=== PATIENT | male | born 1955 | race American Indian/Alaskan Native ===

== ENCOUNTER 2018-02-03 19:02 | Emergency (ER) | payer OTHER, SELFPAY ==
--- NOTE | 2018-02-03 19:08 | ED_ITS ---
HPI - Epistaxis <Janett Pimentel PA-C - Last Filed: 02/03/18 21:15> General Chief complaint: Nasal Problem Stated complaint: 'nose bleeding since last night' Time Seen by Provider: 02/03/18 19:05 Source: patient Mode of arrival: ambulatory Limitations: no limitations History of Present Illness HPI Narrative: This 62-year-old male complains of nosebleed that started last night on the left side. He states he was picking at his nose prior to this starting. He states that this stopped after he pinched his nostrils and used an ice pack. He was picking at his nose again earlier and states he had nosebleed on both sides, again worse on the left, prior to coming in here. He states it [place] but has now nearly resolved. He denies any other trauma. He denies any recent URI symptoms or fever. He has been feeling otherwise well. Related Data Home Medications Medication Instructions Recorded Confirmed FLUTICASONE 50MCG ASHANTI INH- 1 spray INTRANASAL BID #0 03/05/10 (FLUTICASONE PROPIONATE) levothyroxine [Synthroid] 0.075 mg PO QDAY #0 06/25/16 Previous Rx's Medication Instructions Recorded amoxicillin-pot clavulanate 875 mg PO BID #14 tab 06/25/16 [Augmentin] Allergies Allergy/AdvReac Type Severity Reaction Status Date / Time No Known Drug Allergies Allergy Verified 02/03/18 19:31 Review of Systems <Janett Pimentel PA-C - Last Filed: 02/03/18 21:15> Review of Systems All systems reviewed & are unremarkable except as noted in HPI and below PFSH <Janett Pimentel PA-C - Last Filed: 02/03/18 21:15> Comment: Nonsmoker. Denies street drugs Exam <TAMIKA Edwards Last Filed: 02/03/18 21:15> Narrative Exam Narrative: GENERAL APPEARANCE: Patient sitting comfortably, in no distress. HEENT: EOMI, normal oropharynx, nasal mucosa edematous, left side I can visualize a faint dried blood streak but no active bleeding or clear source LUNGS: Clear to auscultation bilaterally. HEART: Rate and rhythm regular without murmur, normal S1 and S2, no S3 or S4. Initial Vital Signs Initial Vital Signs: Vital Signs Temperature 97.2 F L 02/03/18 19:09 Pulse Rate 70 02/03/18 19:09 Respiratory Rate 20 02/03/18 19:09 Blood Pressure 169/97 H 02/03/18 19:09 Pulse Oximetry 96 02/03/18 19:09 <Tai Cuellar DO - Last Filed: 02/03/18 21:41> Initial Vital Signs Initial Vital Signs: Vital Signs Temperature 97.2 F L 02/03/18 19:09 Pulse Rate 70 02/03/18 19:09 Respiratory Rate 20 02/03/18 19:09 Blood Pressure 169/97 H 02/03/18 19:09 Pulse Oximetry 96 02/03/18 19:09 Course <Janett Pimentel PA-C - Last Filed: 02/03/18 21:15> Hospital Course: Epistaxis appeared largely resolved when I 1st saw patient. We did apply Afrin on a cotton ball and this completely resolved. His nasal mucosa was irritated, especially on the left, but I was not able to visualize any source of active bleeding prior to discharge. He was given nasal clip and instructions on repeating the Afrin if needed. He agreed to return if acutely worse. Advised to avoid manipulating the nose and also discontinue his Flonase. Orders Ordered: Discontinued Medications Oxymetazoline HCl (Afrin) 2 sprays NASAL NOW ONE Stop: 02/03/18 19:26 Last Admin: 02/03/18 19:34 Dose: 2 sprays Vital Signs - 8 hr 02/03/18 19:09 02/03/18 20:18 Temperature 97.2 F L Pulse Rate 70 61 Respiratory Rate 20 18 Blood Pressure 169/97 H 132/85 H Pulse Oximetry 96 95 <Tai Cuellar DO - Last Filed: 02/03/18 21:41> Orders Ordered: Discontinued Medications Oxymetazoline HCl (Afrin) 2 sprays NASAL NOW ONE Stop: 02/03/18 19:26 Last Admin: 02/03/18 19:34 Dose: 2 sprays Vital Signs - 8 hr 02/03/18 19:09 02/03/18 20:18 Temperature 97.2 F L Pulse Rate 70 61 Respiratory Rate 20 18 Blood Pressure 169/97 H 132/85 H Pulse Oximetry 96 95 Discharge Plan Departure Patient Disposition: Home, Self-Care Clinical Impression: Epistaxis Discharge Date/Time: 02/03/18 20:18 Interventions: ED Discharge Assessment Last Done: 02/03/18 20:18 Instructions: DI for Nosebleed Activity Restrictions/Additional Instructions: Return as we talked about if you have any acutely worse nose bleed or bleeding will not stop. You can use the nasal spray on a cotton ball and put inside her nose for a few minutes as we did here, as well as using the nose clip. Stop using your Flonase as this may be an irritant. Avoid blowing your nose, picking , or manipulating at all. Follow up with your PCP next week if you continue to have nosebleeds Prescriptions: No Action FLUTICASONE 50MCG ASHANTI INH- (FLUTICASONE PROPIONATE) 1 spray Intranasal BID Qty: 0 RF: 0 levothyroxine [Synthroid] 75 MCG tablet 0.075 mg PO QDAY Qty: 0 RF: 0 amoxicillin-pot clavulanate [Augmentin] 875 MG/125 MG tablet 875 mg PO BID Qty: 14 RF: 0 Referrals: Judit Casillas MD [Primary Care Provider] - <Tai Cuellar DO - Last Filed: 02/03/18 21:41> Cosign ED Attending Shayeature Attestation: I was available for consultation during this patient's emergency department encounter
[2018-02-03 19:09] VITALS: BP 169/97; PULSE 70; RESP 20; TEMP 36.2; O2SAT 96; BMI 33.4
[2018-02-03] MEDS: OXYMETAZOLINE NASAL SPRAY 15 ML 2 SPRAYS NASAL (19:34)
[2018-02-03 20:18] VITALS: BP 132/85; PULSE 61; RESP 18; O2SAT 95
== END 2018-02-03 20:18 | disposition home or self-care (01) ==
PROVIDERS: Emergency Provider Internal Medicine; PCP Family Medicine
DX: R04.0 Epistaxis (principal)
CPT/HCPCS: 30905; 99282

== ENCOUNTER → 2022-05-26 15:47 | Outpatient (CLI) | payer MEDICARE, OTHER, SELFPAY ==
[2022-05-26 17:16] LABS: Alanine Aminotransferase 51 IU/L (<50); Albumin 4.4 g/dL (3.5-5.0); Albumin Globulin Ratio 1.1 (1.0-2.8); Alkaline Phosphatase 81 U/L (38-126); Aspartate Aminotransferase 39 IU/L (17-59); BUN Creatinine Ratio 12.4 (6-22); Bilirubin Total 0.8 mg/dL (0.2-1.3); Blood Urea Nitrogen 11 mg/dL (9-20); Calcium 9.2 mg/dL (8.4-10.2); Carbon Dioxide 29 mmol/L (22-32); Chloride 101 mmol/L (98-107); Cholesterol 124 mg/dL (140-199); Estimated Glomerular Filt Rate > 60 mL/min (>60); Glucose 120 mg/dL (80-110); HDL Cholesterol 36 mg/dL (40-60); HEMOLYSIS < 15 (0-50); LDL Cholesterol Calculated 57 mg/dL (<100); Potassium 4.1 mmol/L (3.4-5.1); Sodium 140 mmol/L (137-145); Total Protein 8.4 g/dL (6.3-8.2); Triglycerides 154 mg/dL (35-150)
[2022-05-26 17:17] LABS: Hemoglobin A1C% w Est Avg Glu 9.8 % (4.0-6.0)
[2022-05-26 18:00] LABS: TSH w/ Reflex to FT4 1.52 uIU/mL (0.47-4.68)
[2022-05-26 20:31] LABS: Creatinine Urine Random 75.2 mg/dL
[2022-05-26 20:34] LABS: Microalbumi Creatinin Ratio Ur 10.6 ug/mg CR (<30); Microalbumin Urine Random 0.8 mg/dL (0-1.6)
== END ==
PROVIDERS: PCP Family Medicine; Referring Provider Registered Nurse; Visit Provider Registered Nurse
DX: E11.9 Type 2 diabetes mellitus without complications (principal); I10 Essential (primary) hypertension
CPT/HCPCS: 36415; 80053; 80061; 82043; 82570; 83036; 84443